=== PATIENT | male | born 1965 | race Hispanic/Latino ===

== ENCOUNTER 2017-08-19 21:17 | Emergency (ER) | payer MEDICARE | END 2017-08-19 22:00 | disposition left against medical advice (07) | LOC: JD.ED 21:17 | DX: Z53.21 Procedure and treatment not carried out due to patient leaving prior to being seen by health care provider (principal) ==

== ENCOUNTER 2017-09-08 13:58 | Emergency (ER) | payer MEDICARE ==
--- NOTE | 2017-09-08 14:31 | EDM.PDOC ---
ED HPI GENERAL MEDICAL PROBLEM - General Chief Complaint: Upper Extremity Injury/Pain Stated Complaint: RIGHT WRIST PAIN Time Seen by Provider: 09/08/17 14:31 Source of Information: Reports: Patient History Limitations: Reports: No Limitations - History of Present Illness INITIAL COMMENTS - FREE TEXT/NARRATIVE: Patient is a 52-year-old male with a history of gout to the right wrist who presents to the ED with flareup for the past week. Patient states symptoms are not as severe with previous episodes. Patient is currently on indomethacin, colchicine, and allopurinol. He has not taken indomethacin or colchicine over the past few days. States there is some mild swelling. Increased pain with movement. No redness, no increased warmth, no pain noted to his hand, forearm, elbow. No redness streaking up his arm. Again findings are consistent with previous episodes. 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 States he drives a lot and lifts items. He was previously on disability for chronic gout in 1999. Over the past few years he's been able to return to work with decrease in symptoms. States he eats a lot of red meats. Denies any alcoholic beverages. He has no primary care provider here locally. Has no additional past medical history and currently taking no other meds. Denies any trauma and or activity that may have precipitated the pain. Right Wrist Pain Score (Numeric/FACES): 7 - Related Data Allergies Allergy/AdvReac Type Severity Reaction Status Date / Time No Known Allergies Allergy Verified 09/08/17 14:23 Home Meds: Home Meds Allopurinol [Zyloprim] 100 mg PO DAILY PRN 08/19/17 [History] Colchicine 0.6 mg PO DAILY PRN 08/19/17 [History] Indomethacin [Indocin] 25 mg PO DAILY 08/19/17 [History] Past Medical History Cardiovascular History: Reports: Hypertension Genitourinary History: Reports: Other (See Below) Other Genitourinary History: gout Social & Family History - Tobacco Use Smoking Status *Q: Never Smoker - Caffeine Use Caffeine Use: Reports: Coffee, Soda - Recreational Drug Use Recreational Drug Use: No Review of Systems - Review of Systems Review Of Systems: ROS reveals no pertinent complaints other than HPI. ED EXAM, GENERAL - Physical Exam Exam: See Below Exam Limited By: No Limitations General Appearance: Alert, WD/WN, No Apparent Distress Ears: Hearing Grossly Normal Nose: Normal Inspection Throat/Mouth: Normal Voice, No Airway Compromise Neck: Normal Inspection, Supple Respiratory/Chest: No Respiratory Distress, Lungs Clear, Normal Breath Sounds, No Accessory Muscle Use Cardiovascular: Normal Peripheral Pulses, Regular Rate, Rhythm Peripheral Pulses: 4+: Radial (L) Extremities: Other (Mild swelling noted to the dorsal aspect of the right wrist/ hand along the second and third metacarpal. Decreased range of motion noted at the wrist secondary to pain. No increased redness, no bony abnormalities, no pain noted to the fingers hand elbow upper arm or shoulder. No sensory changes noted.) Neurological: Alert, Oriented, CN II-XII Intact, Normal Cognition, No Motor/ Sensory Deficits Psychiatric: Normal Affect, Normal Mood Skin Exam: Warm, Dry, Intact, Normal Color Course - Vital Signs Last Recorded V/S: Last Vital Signs Temp 97.6 F 09/08/17 14:23 Pulse 85 09/08/17 14:23 Resp 16 09/08/17 14:23 BP 157/88 H 09/08/17 14:23 Pulse Ox 97 09/08/17 14:23 - Orders/Labs/Meds Meds: Medications Discontinued Medications Generic Name Dose Route Start Last Admin Trade Name Freq PRN Reason Stop Dose Admin Ketorolac Tromethamine 60 mg 09/08/17 14:41 09/08/17 14:46 Toradol IM 09/08/17 14:42 60 mg ONETIME ONE Administration - Re-Assessments/Exams Free Text/Narrative Re-Assessment/Exam: Patient is a 52-year-old male with a history of gout to the right wrist consistent with previous episodes that is not as severe. States she's been taking indomethacin, colchicine, and also allopurinol. States he has not taken the colchicine and indomethacin for the past 2 days. Some mild swelling noted to the right wrist. No increased warmth or increased redness noted. No recent trauma that precipitated this. Again symptoms are consistent with previous episodes. Normally receives a Toradol injection. Labs will not be obtained. Thus ordered toradol 60mg IM. 09/08/17 15:17 reassessment, patient states pain has just improved. He is moving his wrist freely. No grimacing noted. He is wishing to be discharged home. I did discuss return precautions with the patient. He has no further questions. Discharge instructions as documented. Departure - Departure Time of Disposition: 15:14 Disposition: Home, Self-Care 01 Clinical Impression: Gout attack Qualifiers: Gout site: wrist Gout etiology: unspecified cause Laterality: right Qualified Code(s): M10.9 - Gout, unspecified - Discharge Information Instructions: Low-Purine Eating Plan, Gout, [id number] Referrals: PCP,None [Primary Care Provider] - Forms: ED Department Discharge Additional Instructions: Continue taking your home medications as prescribed. Establish medical care with a primary care provider here locally for further management. Read the instructions provided for decreasing flareups. Return to the ED for any new or worsening symptoms.
[2017-09-08] MEDS ORDERED: Ketorolac 60 MG/2 ML SDV IM ONE (14:41)
== END 2017-09-08 15:20 | disposition home or self-care (01) ==
LOC: JD.ED 13:58
DX: M10.9 Gout, unspecified (principal); I10 Essential (primary) hypertension; Z79.899 Other long term (current) drug therapy
CPT/HCPCS: 96372; 99283; J1885

== ENCOUNTER 2017-09-12 22:06 | Emergency (ER) | payer MEDICARE ==
[2017-09-12] MEDS ORDERED: HYDROmorphone 0.5 MG/0.5 ML SYRINGE IM ONE (23:01)
--- NOTE | 2017-09-12 23:05 | EDM.PDOC ---
ED HPI GENERAL MEDICAL PROBLEM - General Chief Complaint: Upper Extremity Injury/Pain Stated Complaint: SWOLLEN RIGHT HAND Time Seen by Provider: 09/12/17 22:42 Source of Information: Reports: Patient History Limitations: Reports: No Limitations - History of Present Illness INITIAL COMMENTS - FREE TEXT/NARRATIVE: 52-year-old male presents for evaluation and treatment of swelling pain to the right hand. Patient reports this has been going on for the last 2 weeks. Feels that his a flare of his gout. He was seen in our ER in 09-08-17. Given a shot of Toradol and instructed to take the colchicine and indomethacin he has at home. He states he has been taking indomethacin but not the colchicine. He now has developed swelling to the right hand. He has pain to the right hand, wrist and elbow. No fevers or chills. States that this is similar to his previous gout attacks. Patient requesting a refill of his lisinopril and allopurinol. He has not yet established with a primary care provider here [place]. States he has not been taking his allopurinol recently. 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) Right Hand Pain Score (Numeric/FACES): 8 - Related Data Allergies Allergy/AdvReac Type Severity Reaction Status Date / Time No Known Allergies Allergy Verified 09/08/17 14:23 Home Meds: Home Meds Allopurinol [Zyloprim] 100 mg PO DAILY PRN 08/19/17 [History] Colchicine 0.6 mg PO DAILY PRN 08/19/17 [History] Indomethacin [Indocin] 25 mg PO DAILY 08/19/17 [History] Acetaminophen/oxyCODONE [Percocet 325-5 MG] 1 tab PO Q4HR PRN #12 tab 09/12/17 [ Rx] Allopurinol [Zyloprim] 100 mg PO DAILY #30 tab 09/12/17 [Rx] Lisinopril 20 mg PO DAILY 09/12/17 [History] Lisinopril 20 mg PO DAILY #30 tablet 09/12/17 [Rx] Past Medical History Cardiovascular History: Reports: Hypertension Genitourinary History: Reports: Other (See Below) Other Genitourinary History: gout Musculoskeletal History: Reports: Gout Social & Family History - Tobacco Use Smoking Status *Q: Never Smoker - Caffeine Use Caffeine Use: Reports: Coffee, Soda - Recreational Drug Use Recreational Drug Use: No Review of Systems - Review of Systems Review Of Systems: See Below Constitutional: Denies: Chills, Fever Musculoskeletal: Reports: Joint Pain (right hand, right wrist and right elbow), Joint Swelling (right hand and right wrist) Neurological: Denies: Numbness, Tingling ED EXAM, GENERAL - Physical Exam Exam: See Below Exam Limited By: No Limitations General Appearance: Alert, WD/WN, Mild Distress, Obese Respiratory/Chest: No Respiratory Distress, Lungs Clear, Normal Breath Sounds Cardiovascular: Normal Peripheral Pulses, Regular Rate, Rhythm, No Murmur Peripheral Pulses: 2+: Radial (L), Radial (R) Extremities: Joint Swelling (right hand), Arm Pain (right hand, wrist and elbow ), Limited Range of Motion (due to pain ). No: Increased Warmth, Redness Neurological: Alert, Oriented, Normal Cognition Psychiatric: Normal Affect, Normal Mood Skin Exam: Warm, Dry, Normal Color Course - Vital Signs Last Recorded V/S: Last Vital Signs Temp 97.7 F 09/12/17 22:17 Pulse 81 09/12/17 22:17 Resp 20 09/12/17 22:17 BP 165/114 H 09/12/17 22:17 Pulse Ox 97 09/12/17 22:17 - Orders/Labs/Meds Meds: Medications Discontinued Medications Generic Name Dose Route Start Last Admin Trade Name Juan Mq PRN Reason Stop Dose Admin Hydromorphone HCl 1 mg 09/12/17 23:01 09/12/17 23:08 Dilaudid IM 09/12/17 23:02 1 mg ONETIME ONE Administration - Re-Assessments/Exams Free Text/Narrative Re-Assessment/Exam: 09/12/17 23:02 Informed patient that he needs to establish primary care. I will give him a shot of pain medication here in the ER tonight prescribe him a few pain pills. Discharge instructions as documented. Departure - Departure Time of Disposition: 23:03 Disposition: Home, Self-Care 01 Condition: Fair Clinical Impression: Gout attack Qualifiers: Gout site: wrist Gout etiology: unspecified cause Laterality: right Qualified Code(s): M10.9 - Gout, unspecified - Discharge Information Prescriptions: Acetaminophen/oxyCODONE [Percocet 325-5 MG] 1 tab PO Q4HR PRN #12 tab PRN Reason: Pain Allopurinol [Zyloprim] 100 mg PO DAILY #30 tab Lisinopril 20 mg PO DAILY #30 tablet Instructions: Gout, [id number] Referrals: PCP,None [Primary Care Provider] - Emily Kaplan PA-C [Physician Tannery Gummer] - Forms: ED Department Discharge Additional Instructions: You were given medication ER that can affect your ability to drive and operate machinery. Do not drive or operate machinery within 12 hours of taking prescription narcotic pain medication. Continue taking your lisinopril 1 tab daily. Take your allopurinol 1 tab daily, start this after this acute gout attack has subsided. Start your colchicine tomorrow as prescribed. Continue taking the indomethacin as prescribed. Percocet 1-2 tabs every 4-[address] not drive or operate machinery within 12 hours of taking Percocet. Percocet as habit-forming, take as few of these as needed to control your pain. You need to establish with a primary care provider. Recommend Dr. Corley or Tete Hopson [facility]. Call [phone] schedule one of these providers. Please return to the ER if your symptoms change or worsen.
== END 2017-09-12 23:15 | disposition home or self-care (01) ==
LOC: JD.ED 22:06
DX: M10.9 Gout, unspecified (principal); I10 Essential (primary) hypertension; Z79.899 Other long term (current) drug therapy
CPT/HCPCS: 96372; 99283; J1170

== ENCOUNTER 2020-02-06 22:30 | Emergency (ER) | payer MEDICARE ==
--- NOTE | 2020-02-06 23:30 | EDM.PDOC ---
ED HPI GENERAL MEDICAL PROBLEM - General Chief Complaint: Respiratory Problem Stated Complaint: SOB Time Seen by Provider: 02/06/20 22:41 Source of Information: Reports: Patient History Limitations: Reports: No Limitations - History of Present Illness INITIAL COMMENTS - FREE TEXT/NARRATIVE: Mr. Robetr is a pleasant 54-year-old gentleman who now presents to the ED with a report of generalized body aches for the past 4 to 5 days, and dyspnea, even at rest, today. No recent fever, cough, chest pain, palpitations, or gastrointestinal symptoms. He has had body aches in the past, but no similar prior dyspnea. He states that he took 3 tablets of Aleve every 6 hours 2 to 3 days ago, but has not taken any over the past 2 days. The patient states that he has a history of diabetes, and that he checks his blood glucose about once a month, however, he does not recall the last time it was checked. He also states that he has not taken his medications for his hypertension, gout, or diabetes for the past 5 days, but also states that he does not have a PCP, and that he does not recall who his PCP was. I suspect that the patient's medical conditions have been left untreated for quite some time. The patient is noted to be wearing one of our surgical masks, given to him upon entering the ED, and he was wearing that down below his nose. This suggests to me that the patient does not have a mask of his own, and that even if he did, he is not wearing it properly, therefore he is at increased risk for acquisition of the SARS-CoV-2 virus. Here in the ED, the patient's initial BP is found to be modestly elevated at 149/98, otherwise, he is hemodynamically stable, afebrile, saturating 96% on room air. Prior to 4 to 5 days ago, the patient denies having a recent fever, chills, sore throat, ear pain, nasal or sinus congestion, cough, dyspnea, chest pain, palpitations, nausea, vomiting, constipation, diarrhea, abdominal pain, urinary symptoms, recent weight gain or weight loss, recent bloody bowel movements or black bowel movements, recent joint aches, headaches, or rashes. Medical records indicate that the patient last saw Dr. Magalys Corley on 12/28/2019. Generalized Pain Score (Numeric/FACES): 3 - Related Data Allergies Allergy/AdvReac Type Severity Reaction Status Date / Time No Known Allergies Allergy Verified 02/06/20 22:52 Home Meds: Home Meds Colchicine 0.6 mg PO DAILY PRN 08/19/17 [History] Indomethacin [Indocin] 50 mg PO DAILY 08/19/17 [History] Acetaminophen/oxyCODONE [Percocet 325-5 MG] 1 tab PO Q4HR PRN #12 tab 09/12/17 [Rx] Lisinopril 20 mg PO DAILY #30 tablet 09/12/17 [Rx] allopurinoL [Zyloprim] 100 mg PO DAILY #30 tab 09/12/17 [Rx] metFORMIN [Glucophage] 500 mg PO BIDMEALS 02/06/20 [History] metFORMIN [Glucophage] 1 tab PO BIDMEALS #28 tab 02/07/20 [Rx] Past Medical History Cardiovascular History: Reports: Hypertension (untreated) Musculoskeletal History: Reports: Gout (aspiration-confirmed, untreated) Endocrine/Metabolic History: Reports: Diabetes, Type II (untreated), Obesity/BMI 30+ - Infectious Disease History Infectious Disease History: Reports: Chicken Pox Social & Family History - Family History Family Medical History: Noncontributory - Tobacco Use Tobacco Use Status *Q: Former Tobacco User Years of Tobacco use: 17 Packs/Tins Daily: 0.5 Month/Year Tobacco Last Used: Quit around 1999 - Caffeine Use Caffeine Use: Reports: None - Alcohol Use Alcohol Use History: No - Recreational Drug Use Recreational Drug Use: No - Living Situation & Occupation Living situation: Reports: , with Spouse, with Family (2 kids) 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 ED EXAM, GENERAL - Physical Exam Exam: See Below Exam Limited By: No Limitations General Appearance: Alert, WD/WN, No Apparent Distress Eye Exam: Bilateral Eye: EOMI, Normal Inspection Ears: Normal External Exam, Hearing Grossly Normal Nose: Normal Inspection Throat/Mouth: Normal Inspection, Normal Lips, Normal Voice, No Airway Compromise Head: Atraumatic, Normocephalic Neck: Normal Inspection, Full Range of Motion Respiratory/Chest: No Respiratory Distress, Lungs Clear, Normal Breath Sounds, No Accessory Muscle Use. No: Decreased Breath Sounds, Crackles, Rhonchi, Wheezing, Stridor, Prolonged Expiration Cardiovascular: Normal Peripheral Pulses, Regular Rate, Rhythm, No Edema, No Gallop, No JVD, No Murmur, No Rub Peripheral Pulses: 3+: Radial (L), Radial (R) GI/Abdominal: Normal Bowel Sounds, Soft, Non-Tender, No Organomegaly, No Distention, No Abnormal Bruit, No Mass Back Exam: Normal Inspection, Full Range of Motion, NT Extremities: Normal Inspection, Normal Range of Motion, No Pedal Edema, Normal Capillary Refill Neurological: Alert, Oriented, Normal Cognition, No Motor/Sensory Deficits Psychiatric: Normal Affect Skin Exam: Warm, Dry, Intact, Normal Color, No Rash Course - Vital Signs Last Recorded V/S: Last Vital Signs Temp 35.5 C L 02/06/20 22:48 Pulse 78 02/06/20 22:48 Resp 20 02/06/20 22:48 BP 149/98 H 02/06/20 22:48 Pulse Ox 96 02/06/20 22:48 - Orders/Labs/Meds Orders: Active Orders 24 hr Category Date Time Status Accu Check [Blood Glucose Check, Bedside] [RC] ONETIME Care 02/06/20 23:31 Active Chest 2V [CR] Stat Exams 02/06/20 23:23 Taken CORONAVIRUS COVID-19 PCR PHL Stat Lab 02/06/20 23:32 Received Isolation [COMM] Routine Oth 02/06/20 23:24 Ordered - Re-Assessments/Exams Free Text/Narrative Re-Assessment/Exam: 02/06/20 23:24 As above, the patient developed generalized body aches around 4 to 5 days ago, then dyspnea at rest today, although he has not had a fever, cough, chest pain, palpitations, or gastrointestinal symptoms. He took Aleve initially, but has not taken any in the past couple of days. He is neither febrile nor hypoxemic. His physical exam is grossly unremarkable. I have ordered an influenza swab and a chest x-ray, to be used as a baseline in case his condition worsens, however, unless his chest x-ray is abnormal, I do not see the need for blood work at this time. I have also ordered a send-out swab for the SARS-CoV-2 virus and an Accu-check. 02/06/20 23:58 The patient's Accu-Chek is 324. 02/07/20 00:09 The patient's influenza swab has returned negative. 02/07/20 00:13 2-view chest radiograph is read by [facility] as "Mild patchy airspace opacities in both lungs, most suggestive of multifocal pneumonia." 02/07/20 00:18 Test results discussed with the patient. His findings are most consistent with COVID-19. I offered to perform additional blood work, including blood cultures, but the patient declined. Having bilateral infiltrates without a fever, cough, or hypoxemia is not consistent with bacterial pneumonia, so I don't disagree with the patient's decision. I will discharge him home with a prescription for Metformin for 2 weeks, as well as a referral to Dr. Corley to reestablish her as his PCP. The patient will need to quarantine until he tests negative for the SARS-CoV-2 virus twice, and I will provide him a note for work. Departure - Departure Time of Disposition: 00:19 Disposition: Home, Self-Care 01 Condition: Good Clinical Impression: Dyspnea, Generalized body aches, Suspected COVID-19 virus infection, Hyperglycemia due to type 2 diabetes mellitus - Discharge Information *PRESCRIPTION DRUG MONITORING PROGRAM REVIEWED*: Not Applicable *COPY OF PRESCRIPTION DRUG MONITORING REPORT IN PATIENT [place]ULAY: Not Applicable Prescriptions: metFORMIN [Glucophage] 1 tab PO BIDMEALS #28 tab Referrals: Magalys Corley MD [Physician] - Forms: ED Department Discharge, ED Return to Work/School Form Additional Instructions: You were seen in the emergency room for 4 to 5 days of generalized body aches, along with shortness of breath today. Work-up in the ER included an Accu-Chek, a chest x-ray, and swabs for both influenza and the SARS-CoV-2 virus. Your blood sugar was found to be elevated at 324. Your influenza swab returned negative. Your chest x-ray showed mild infiltrates in both of your lungs, consistent with COVID-19, however, your swab for the SARS-CoV-2 virus is a send-out swab. You will be notified of the results within the next few days. Based on your history, physical exam, and ER tests, you are most likely suffering from COVID-19. As discussed, unless your oxygen saturation drops down to 88% or below, there are no current treatments recommended for COVID-19. As discussed, it is imperative that you quarantine until you tested negative for COVID-19 on 2 separate occasions. A note for work has been provided to you. A prescription for Metformin has been sent to the [facility] pharmacy, located across the [address] and just south of [facility]. Take 1 tablet of Metformin twice a day, with food, as prescribed. Follow-up with your PCP, Dr. Magalys Corley, at the next available appointment. If any other problems, please do not hesitate to return to the ER. Sepsis Event Note (ED) - Evaluation Sepsis Screening Result: No Definite Risk - Focused Exam Vital Signs: Vital Signs Temp Pulse Resp BP Pulse Ox 02/06/20 22:48 35.5 C L 78 20 149/98 H 96 - My Orders Last 24 Hours: My Active Orders 02/06/20 23:23 Chest 2V [CR] Stat 02/06/20 23:24 Isolation [COMM] Routine 02/06/20 23:31 Accu Check [Blood Glucose Check, Bedside] [RC] ONETIME 02/06/20 23:32 CORONAVIRUS COVID-19 PCR PHL Stat - Assessment/Plan Last 24 Hours: My Active Orders 02/06/20 23:23 Chest 2V [CR] Stat 02/06/20 23:24 Isolation [COMM] Routine 02/06/20 23:31 Accu Check [Blood Glucose Check, Bedside] [RC] ONETIME 02/06/20 23:32 CORONAVIRUS COVID-19 PCR PHL Stat
--- NOTE | 2020-02-07 10:19 | CR ---
PROCEDURE INFORMATION: Exam: XR Chest, 2 Views Exam date and time: 02/06/2020 11:49 PM Age: 54 years old Clinical indication: Other: Chills, aches; Patient HX: Baseline, chills/aches onset yesterday morning TECHNIQUE: Imaging protocol: XR of the chest Views: 2 views. COMPARISON: No relevant prior studies available. FINDINGS: Lungs: Mild patchy airspace opacities in both lungs. Pleural space: Unremarkable. No pleural effusion. No pneumothorax. Heart/Mediastinum: Unremarkable. No cardiomegaly. Bones/joints: Multilevel chronic degenerative changes of the thoracic spine. IMPRESSION: Mild patchy airspace opacities in both lungs, most suggestive of multifocal pneumonia. Thank you for allowing us to participate in the care of your patient. Dictated and Authenticated by: Fredi Koch MD 02/07/2020 1:11 AM Central Time ([place] & [place]) [place]
== END 2020-02-07 00:45 | disposition home or self-care (01) ==
LOC: JD.ED 22:30
DX: U07.1 COVID-19 (principal); E11.65 Type 2 diabetes mellitus with hyperglycemia; I10 Essential (primary) hypertension; M10.9 Gout, unspecified; E66.9 Obesity, unspecified; Z68.35 Body mass index [BMI] 35.0-35.9, adult; Z20.828 Contact with and (suspected) exposure to other viral communicable diseases; Z79.84 Long term (current) use of oral hypoglycemic drugs; Z79.899 Other long term (current) drug therapy; Z87.891 Personal history of nicotine dependence
CPT/HCPCS: 71046; 99285; U0002

== ENCOUNTER 2020-02-08 04:34 | Emergency (ER) | payer MEDICARE ==
--- NOTE | 2020-02-08 05:29 | EDM.PDOC ---
ED HPI GENERAL MEDICAL PROBLEM - General Chief Complaint: Respiratory Problem Stated Complaint: SOB Time Seen by Provider: 02/08/20 05:00 Source of Information: Reports: Patient, Old Records (ED visit 02/06/2020) History Limitations: Reports: No Limitations - History of Present Illness INITIAL COMMENTS - FREE TEXT/NARRATIVE: Mr. Robert is a pleasant 54-year-old gentleman who was seen by me 2 days ago, on 02/06/2020 with a complaint at that time of generalized body aches for the previous 4 to 5 days, and dyspnea, even at rest that day. He had not had a recent fever, cough, chest discomfort, palpitations, or gastrointestinal symptoms. He had had body aches in the past, but not prior similar dyspnea. It was discovered that the patient has a history of hypertension, diabetes, and gout, but that he had not taken any of his medications for the previous 5 days, and perhaps longer. The patient was found to be hemodynamically stable, afebrile, saturating 96% on room air. His physical exam, including his lungs, was grossly unremarkable. Work-up included an Accu-Chek, which returned elevated at 324, an influenza swab, which returned negative, and a 2 view chest x-ray, which was read by [facility] as "Mild patchy airspace opacities in both lungs, most suggestive of multifocal pneumonia." The patient's presentation was felt most consistent with COVID-19. Additional work-up, including blood work and blood cultures was offered, but declined. He was discharged home with a prescription for Metformin and a referral to the clinic, in order to establish a PCP. The patient now returns the ED stating that he continues to have dyspnea, as well as a cough occasionally productive of clear sputum and rarely productive of specks of hemoptysis. He has still not had a fever or chills, and he denies having body aches. No recent nausea, vomiting, constipation, or diarrhea. He acknowledges that his symptoms are essentially unchanged from 2 days ago, but he is looking for some form of relief. He states that he has been taking Emergen- C, lisinopril, and the Metformin that I prescribed for him. He has not made an appointment to establish a PCP. Here in the ED, the patient's initial BP is found to be mildly elevated at 146/96, otherwise, he is hemodynamically stable, afebrile, saturating 95% on room air. Prior to the onset of the patient's symptoms about 1 week ago, the patient denies having a recent fever, chills, sore throat, ear pain, nasal or sinus congestion, cough, dyspnea, chest pain, palpitations, nausea, vomiting, constipation, diarrhea, abdominal pain, urinary symptoms, recent weight gain or weight loss, recent bloody bowel movements or black bowel movements, recent joint aches, headaches, or rashes. Medical records indicate that the patient last saw Dr. Magalys Corley on 12/28/2019. - Related Data Allergies Allergy/AdvReac Type Severity Reaction Status Date / Time No Known Allergies Allergy Verified 02/08/20 04:45 Home Meds: Home Meds Colchicine 0.6 mg PO DAILY PRN 08/19/17 [History] Indomethacin [Indocin] 50 mg PO DAILY 08/19/17 [History] Acetaminophen/oxyCODONE [Percocet 325-5 MG] 1 tab PO Q4HR PRN #12 tab 09/12/17 [Rx] Lisinopril 20 mg PO DAILY #30 tablet 09/12/17 [Rx] allopurinoL [Zyloprim] 100 mg PO DAILY #30 tab 09/12/17 [Rx] metFORMIN [Glucophage] 500 mg PO BIDMEALS 02/06/20 [History] metFORMIN [Glucophage] 1 tab PO BIDMEALS #28 tab 02/07/20 [Rx] Past Medical History Cardiovascular History: Reports: Hypertension Musculoskeletal History: Reports: Gout (aspiration-confirmed, untreated) Endocrine/Metabolic History: Reports: Diabetes, Type II, Obesity/BMI 30+ - Infectious Disease History Infectious Disease History: Reports: Chicken Pox Social & Family History - Family History Family Medical History: Noncontributory - Tobacco Use Tobacco Use Status *Q: Former Tobacco User Years of Tobacco use: 17 Packs/Tins Daily: 0.5 Month/Year Tobacco Last Used: Quit around 1999 - Caffeine Use Caffeine Use: Reports: None - Alcohol Use Alcohol Use History: No - Recreational Drug Use Recreational Drug Use: No - Living Situation & Occupation Living situation: Reports: , with Spouse, with Family (2 kids) 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 ED EXAM, GENERAL - Physical Exam Exam: See Below Exam Limited By: No Limitations General Appearance: Alert, WD/WN, No Apparent Distress Eye Exam: Bilateral Eye: EOMI, Normal Inspection Ears: Normal External Exam, Hearing Grossly Normal Nose: Normal Inspection Throat/Mouth: Normal Inspection, Normal Lips, Normal Voice, No Airway Compromise Head: Atraumatic, Normocephalic Neck: Normal Inspection, Full Range of Motion Respiratory/Chest: No Respiratory Distress, Lungs Clear, Normal Breath Sounds, No Accessory Muscle Use. No: Decreased Breath Sounds, Crackles, Rhonchi, Wheezing, Stridor, Prolonged Expiration Cardiovascular: Normal Peripheral Pulses, Regular Rate, Rhythm, No Edema, No Gallop, No JVD, No Murmur, No Rub Peripheral Pulses: 3+: Radial (L), Radial (R) GI/Abdominal: Normal Bowel Sounds, Soft, Non-Tender, No Organomegaly, No Distention, No Abnormal Bruit, No Mass Back Exam: Normal Inspection, Full Range of Motion, NT Extremities: Normal Inspection, Normal Range of Motion, No Pedal Edema, Normal Capillary Refill Neurological: Alert, Oriented, Normal Cognition, No Motor/Sensory Deficits Psychiatric: Normal Affect Skin Exam: Warm, Dry, Intact, Normal Color, No Rash Course - Vital Signs Last Recorded V/S: Last Vital Signs Temp 36.0 C L 02/08/20 04:45 Pulse 90 02/08/20 04:45 Resp 18 02/08/20 04:45 BP 146/96 H 02/08/20 04:45 Pulse Ox 95 02/08/20 04:45 - Orders/Labs/Meds Orders: Active Orders 24 hr Category Date Time Status Chest 2V [CR] Stat Exams 02/08/20 05:18 Taken CULTURE BLOOD [BC] Stat Lab 02/08/20 05:53 Received CULTURE BLOOD [BC] Stat Lab 02/08/20 06:00 Received Blood Culture x2 Reflex Set [OM.PC] Stat Oth 02/08/20 05:20 Ordered Labs: Laboratory Tests 02/08/20 02/08/20 02/08/20 Range/Units 05:53 05:53 05:53 WBC 7.58 (4.23-9.07) K/mm3 RBC 5.58 (4.63-6.08) M/mm3 Hgb 15.8 (13.7-17.5) gm/dl Hct 47.7 (40.1-51.0) % MCV 85.5 (79.0-92.2) fl MCH 28.3 (25.7-32.2) pg MCHC 33.1 (32.2-35.5) g/dl RDW Std Deviation 39.7 (35.1-43.9) fL Plt Count 360 H (163-337) K/mm3 MPV 9.0 L (9.4-12.3) fl Neutrophils % (Manual) 70 H (40-60) % Band Neutrophils % 0 (0-10) % Lymphocytes % (Manual) 22 (20-40) % Atypical Lymphs % 0 % Monocytes % (Manual) 8 (2-10) % Eosinophils % (Manual) 0 L (0.8-7.0) % Basophils % (Manual) 0 L (0.2-1.2) Platelet Estimate Adequate RBC Morph Comment Normal PT (9.7-12.0) SECONDS INR APTT (21.7-31.4) SECONDS D-Dimer, Quantitative (0.19-0.50) mg/L Puncture Site ABG pH (7.35-7.45) ABG pCO2 (35.0-45.0) mmHg ABG pO2 (80.0-100.0) mmHg ABG HCO3 (22.0-26.0) meq/L ABG O2 Saturation (96.0-97.0) % ABG Base Excess (-2-2.0) A-a Gradient mmHg O2 Delivery Device Oxygen Flow Rate FiO2 (21.00-100.00) % Sodium 134 L (136-145) mEq/L Potassium 4.2 (3.5-5.1) mEq/L Chloride 97 L (98-107) mEq/L Carbon Dioxide 24 (21-32) mEq/L Anion Gap 17.2 H (5-15) BUN 18 (7-18) mg/dL Creatinine 1.4 H (0.7-1.3) mg/dL Est Cr Clr Drug Dosing 65.44 mL/min Estimated GFR (MDRD) 53 (>60) mL/min BUN/Creatinine Ratio 12.9 L (14-18) Glucose 206 H (74-106) mg/dL Lactic Acid 1.2 (0.4-2.0) mmol/L Calcium 8.8 (8.5-10.1) mg/dL Magnesium 1.8 (1.8-2.4) mg/dl Ferritin (26-388) ng/ml Total Bilirubin 0.6 (0.2-1.0) mg/dL AST 45 H (15-37) U/L ALT 45 (16-63) U/L Alkaline Phosphatase 90 (46-116) U/L Lactate Dehydrogenase 321 H (85-227) U/L Creatine Kinase 231 (39-308) U/L Troponin I < 0.017 (0.00-0.056) ng/mL C-Reactive Protein 7.1 H* (<1.0) mg/dL NT-Pro-B Natriuret Pep (0-125) pg/mL Total Protein 8.4 H (6.4-8.2) g/dl Albumin 3.5 (3.4-5.0) g/dl Globulin 4.9 gm/dL Albumin/Globulin Ratio 0.7 L (1-2) 02/08/20 02/08/20 02/08/20 Range/Units 05:53 05:53 05:53 WBC (4.23-9.07) K/mm3 RBC (4.63-6.08) M/mm3 Hgb (13.7-17.5) gm/dl Hct (40.1-51.0) % MCV (79.0-92.2) fl MCH (25.7-32.2) pg MCHC (32.2-35.5) g/dl RDW Std Deviation (35.1-43.9) fL Plt Count (163-337) K/mm3 MPV (9.4-12.3) fl Neutrophils % (Manual) (40-60) % Band Neutrophils % (0-10) % Lymphocytes % (Manual) (20-40) % Atypical Lymphs % % Monocytes % (Manual) (2-10) % Eosinophils % (Manual) (0.8-7.0) % Basophils % (Manual) (0.2-1.2) Platelet Estimate RBC Morph Comment PT 10.7 (9.7-12.0) SECONDS INR 1.00 APTT 32.8 H (21.7-31.4) SECONDS D-Dimer, Quantitative 0.38 (0.19-0.50) mg/L Puncture Site ABG pH (7.35-7.45) ABG pCO2 (35.0-45.0) mmHg ABG pO2 (80.0-100.0) mmHg ABG HCO3 (22.0-26.0) meq/L ABG O2 Saturation (96.0-97.0) % ABG Base Excess (-2-2.0) A-a Gradient mmHg O2 Delivery Device Oxygen Flow Rate FiO2 (21.00-100.00) % Sodium (136-145) mEq/L Potassium (3.5-5.1) mEq/L Chloride (98-107) mEq/L Carbon Dioxide (21-32) mEq/L Anion Gap (5-15) BUN (7-18) mg/dL Creatinine (0.7-1.3) mg/dL Est Cr Clr Drug Dosing mL/min Estimated GFR (MDRD) (>60) mL/min BUN/Creatinine Ratio (14-18) Glucose (74-106) mg/dL Lactic Acid (0.4-2.0) mmol/L Calcium (8.5-10.1) mg/dL Magnesium (1.8-2.4) mg/dl Ferritin 1509 H (26-388) ng/ml Total Bilirubin (0.2-1.0) mg/dL AST (15-37) U/L ALT (16-63) U/L Alkaline Phosphatase (46-116) U/L Lactate Dehydrogenase (85-227) U/L Creatine Kinase (39-308) U/L Troponin I (0.00-0.056) ng/mL C-Reactive Protein (<1.0) mg/dL NT-Pro-B Natriuret Pep 14 (0-125) pg/mL Total Protein (6.4-8.2) g/dl Albumin (3.4-5.0) g/dl Globulin gm/dL Albumin/Globulin Ratio (1-2) 02/08/20 Range/Units 06:23 WBC (4.23-9.07) K/mm3 RBC (4.63-6.08) M/mm3 Hgb (13.7-17.5) gm/dl Hct (40.1-51.0) % MCV (79.0-92.2) fl MCH (25.7-32.2) pg MCHC (32.2-35.5) g/dl RDW Std Deviation (35.1-43.9) fL Plt Count (163-337) K/mm3 MPV (9.4-12.3) fl Neutrophils % (Manual) (40-60) % Band Neutrophils % (0-10) % Lymphocytes % (Manual) (20-40) % Atypical Lymphs % % Monocytes % (Manual) (2-10) % Eosinophils % (Manual) (0.8-7.0) % Basophils % (Manual) (0.2-1.2) Platelet Estimate RBC Morph Comment PT (9.7-12.0) SECONDS INR APTT (21.7-31.4) SECONDS D-Dimer, Quantitative (0.19-0.50) mg/L Puncture Site Rt radial ABG pH 7.42 (7.35-7.45) ABG pCO2 33.9 L (35.0-45.0) mmHg ABG pO2 70.0 L (80.0-100.0) mmHg ABG HCO3 21.4 L (22.0-26.0) meq/L ABG O2 Saturation 93.4 L (96.0-97.0) % ABG Base Excess -1.9 (-2-2.0) A-a Gradient 37 mmHg O2 Delivery Device Room air Oxygen Flow Rate 0.0 FiO2 21.00 (21.00-100.00) % Sodium (136-145) mEq/L Potassium (3.5-5.1) mEq/L Chloride (98-107) mEq/L Carbon Dioxide (21-32) mEq/L Anion Gap (5-15) BUN (7-18) mg/dL Creatinine (0.7-1.3) mg/dL Est Cr Clr Drug Dosing mL/min Estimated GFR (MDRD) (>60) mL/min BUN/Creatinine Ratio (14-18) Glucose (74-106) mg/dL Lactic Acid (0.4-2.0) mmol/L Calcium (8.5-10.1) mg/dL Magnesium (1.8-2.4) mg/dl Ferritin (26-388) ng/ml Total Bilirubin (0.2-1.0) mg/dL AST (15-37) U/L ALT (16-63) U/L Alkaline Phosphatase (46-116) U/L Lactate Dehydrogenase (85-227) U/L Creatine Kinase (39-308) U/L Troponin I (0.00-0.056) ng/mL C-Reactive Protein (<1.0) mg/dL NT-Pro-B Natriuret Pep (0-125) pg/mL Total Protein (6.4-8.2) g/dl Albumin (3.4-5.0) g/dl Globulin gm/dL Albumin/Globulin Ratio (1-2) - Re-Assessments/Exams Free Text/Narrative Re-Assessment/Exam: 02/08/20 05:23 As above, the patient was seen by me in this ED 2 days ago with a complaint at that time of generalized body aches for 4 to 5 days, and dyspnea, even at rest. Is afebrile, with an oxygen saturation of 96% on room air, and his physical exam, including that of his lungs, was grossly benign. His Accu-Chek was found to be elevated at 324, his influenza swab returned negative, and his chest x-ray found bilateral opacities, consistent with multifocal pneumonia. His findings were most consistent with COVID-19. Additional work-up was offered, but declined. He now returns to the ED with, essentially, just more of the same, with continued dyspnea with even minimal exertion, and a cough occasionally productive of clear sputum and rarely productive of specks of hemoptysis. Still no fever. He states that he would like me to prescribe him antibiotics. I explained that antibiotics are not indicated for viral or COVID-19 pneumonia. He stated that he would like the work-up that was offered the other day. I have therefore ordered blood work, an ABG, 2 sets of blood cultures, and a repeat chest x-ray. While both of us would like to know today if the patient is positive for COVID-19, I cannot offer an immediate test, because the patient does not meet criterion for admission. 02/08/20 08:03 The patient's CBC is remarkable for thrombocytosis of 360,000, with the remainder of his CBC being unremarkable. His CMP is remarkable for a sodium slightly depressed at 134, and anion gap mildly elevated at 17.2, but with a bicarbonate normal at 24, a Cr mildly elevated at 1.4, but with a BUN normal at 18, blood glucose mildly elevated at 2 06, and an AST slightly elevated at 45 with an ALT normal at 45, and the remainder of his CMP being unremarkable. His magnesium level is within normal limits at 1.8. His lactic acid level is within normal limits at 1.2. His LDH is elevated at 321. His ferritin is elevated at 1509. His CRP is elevated at 7.1. His CPK is within normal limits at 231. His troponin is undetectably low. His BNP is within normal limits at 14. His D-dimer is within normal limits at 0.38. His coags are remarkable for PTT mildly elevated at 32.8, with the remainder of his coags being within normal limits. His ABG represents a fully compensated respiratory alkalosis. 2-view chest radiograph is read by [facility] as "Stable bilateral pulmonary infiltrates, pneumonitis not excluded. Clinical correlation is recommended." 02/08/20 08:12 Test results discussed with the patient. As above, today's work-up is entirely consistent with the patient suffering from COVID-19. I explained that, unless his oxygen saturation drops low enough that he would require supplemental oxygen, there are no medicines that we can give to treat COVID-19, and he will therefore have to simply tolerate the symptoms. I reminded him that he will need to quarantine until he tests negative, twice. I recommended that he get tested once he is feeling better. The patient expressed understanding. Departure - Departure Time of Disposition: 08:14 Disposition: Home, Self-Care 01 Condition: Good Clinical Impression: Suspected COVID-19 virus infection, Dyspnea, Cough, Hyperglycemia due to type 2 diabetes mellitus - Discharge Information *PRESCRIPTION DRUG MONITORING PROGRAM REVIEWED*: Not Applicable *COPY OF PRESCRIPTION DRUG MONITORING REPORT IN PATIENT ZULAY: Not Applicable Referrals: Magalys Corley MD [Physician] - Forms: ED Department Discharge Additional Instructions: You were seen in the emergency room for continued shortness of breath and cough, occasional coughing up blood. Work-up in the ER included blood work, 2 sets of blood cultures, arterial blood gas, and a chest x-ray. While not definitive, several of your tests returned consistent with your having COVID-19. As discussed, unless your oxygen saturation drops down to 80% or below, there are no current treatments recommended for COVID-19. As discussed, it is imperative that you quarantine until you are feeling better, at which time you should get tested again, twice. Do not return to society until you test negative twice. Follow-up with your PCP, Dr. Magalys Corley, at the next available appointment. If any other problems, please do not hesitate to return to the ER. Sepsis Event Note (ED) - Evaluation Sepsis Screening Result: No Definite Risk - Focused Exam Vital Signs: Vital Signs Temp Pulse Resp BP Pulse Ox 02/08/20 04:45 36.0 C L 90 18 146/96 H 95 - My Orders Last 24 Hours: My Active Orders 02/08/20 05:18 Chest 2V [CR] Stat 02/08/20 05:20 Blood Culture x2 Reflex Set [OM.PC] Stat 02/08/20 05:53 CULTURE BLOOD [BC] Stat 02/08/20 06:00 CULTURE BLOOD [BC] Stat - Assessment/Plan Last 24 Hours: My Active Orders 02/08/20 05:18 Chest 2V [CR] Stat 02/08/20 05:20 Blood Culture x2 Reflex Set [OM.PC] Stat 02/08/20 05:53 CULTURE BLOOD [BC] Stat 02/08/20 06:00 CULTURE BLOOD [BC] Stat
--- NOTE | 2020-02-08 10:43 | CR ---
PROCEDURE INFORMATION: Exam: XR Chest, 2 Views Exam date and time: 02/08/2020 6:26 AM Age: 54 years old Clinical indication: Cough with hemorrhage TECHNIQUE: Imaging protocol: XR of the chest Views: Frontal and lateral upright views. COMPARISON: DX Chest 2V 02/06/2020 11:49 PM FINDINGS: Lungs: Stable heterogeneous air space opacities in the bilateral lungs. The pulmonary vasculature is normal. Pleural space: No pleural effusion. No pneumothorax. Heart/Mediastinum: The heart is normal in size and contour. Mediastinum: Stable. Bones/joints: Right lateral and anterior vertebral body marginal osteophytes are noted at multiple thoracic spinal levels. IMPRESSION: Stable bilateral pulmonary infiltrates, pneumonitis not excluded. Clinical correlation is recommended. Thank you for allowing us to participate in the care of your patient. Dictated and Authenticated by: Calin Dye MD 02/08/2020 7:57 AM Central Time ([place] & [place]) [place]
== END 2020-02-08 08:58 | disposition home or self-care (01) ==
LOC: JD.ED 04:34
DX: U07.1 COVID-19 (principal); E11.65 Type 2 diabetes mellitus with hyperglycemia; I10 Essential (primary) hypertension; M10.9 Gout, unspecified; E66.9 Obesity, unspecified; R79.89 Other specified abnormal findings of blood chemistry; Z87.891 Personal history of nicotine dependence; Z79.84 Long term (current) use of oral hypoglycemic drugs; Z79.899 Other long term (current) drug therapy; Z68.29 Body mass index [BMI] 29.0-29.9, adult
CPT/HCPCS: 36415; 36600; 71046; 71046-26; 80053; 82550; 82728; 82803; 83605; 83615; 83735; 83880; 84484; 85007; 85027; 85379; 85610; 85730; 86140; 87040; 99285-25

== ENCOUNTER 2020-12-02 13:24 | Emergency (ER) | payer MEDICARE, OTHER ==
[2020-12-02] MEDS ORDERED: Colchicine 0.6 MG Tab PO ONE (14:13)
[2020-12-02] MEDS ORDERED: HYDROmorphone 1 MG/ML Syringe IM ONE (14:31)
--- NOTE | 2020-12-02 14:39 | EDM.PDOC ---
ED HPI GENERAL MEDICAL PROBLEM - General Chief Complaint: Upper Extremity Injury/Pain Stated Complaint: JOINT PAIN/SWOLLEN HANDS Time Seen by Provider: 12/02/20 14:10 Source of Information: Reports: Patient, RN Notes Reviewed History Limitations: Reports: No Limitations - History of Present Illness INITIAL COMMENTS - FREE TEXT/NARRATIVE: Patient is a 55-year-old male who presents to the ER for evaluation of a suspected gout flare. Does have a history of gout, and started a few days ago, with pain to his bilateral hands along with swelling. States that he has been using 1000 mg ibuprofen for pain management and things do not seem to be getting much better. States he has no primary care provider, but he normally takes indomethacin 100 mg 2-3 times a day for a few days when the pain is at its worst. He is requesting something for pain management initially, and a refill of indomethacin. Notes that he is also having some pain into his bilateral ankles. Patient denies any other sick-like symptoms, fever/chills, cough/shortness of breath, nausea/vomiting/diarrhea. Treatments BLOCK GREASER: Reports: Other (see below) Other Treatments BLOCK GREASER: out of med a home Left Hand Pain Score (Numeric/FACES): 8 Bilateral Knee Pain Score (Numeric/FACES): 3 Left Ankle Pain Score (Numeric/FACES): 6 - Related Data Allergies Allergy/AdvReac Type Severity Reaction Status Date / Time No Known Allergies Allergy Verified 02/08/20 04:45 Home Meds: Home Meds Colchicine 0.6 mg PO DAILY PRN 08/19/17 [History] Indomethacin [Indocin] 50 mg PO DAILY 08/19/17 [History] Acetaminophen/oxyCODONE [Percocet 325-5 MG] 1 tab PO Q4HR PRN #12 tab 09/12/17 [Rx] Lisinopril 20 mg PO DAILY #30 tablet 09/12/17 [Rx] allopurinoL [Zyloprim] 100 mg PO DAILY #30 tab 09/12/17 [Rx] metFORMIN [Glucophage] 300 mg PO DAILY 02/06/20 [History] metFORMIN [Glucophage] 1 tab PO BIDMEALS #28 tab 02/07/20 [Rx] Indomethacin 100 mg PO TID #42 capsule 12/02/20 [Rx] Past Medical History Cardiovascular History: Reports: Hypertension Genitourinary History: Reports: Other (See Below) Other Genitourinary History: gout Musculoskeletal History: Reports: Gout Endocrine/Metabolic History: Reports: Diabetes, Type II, Obesity/BMI 30+ - Infectious Disease History Infectious Disease History: Reports: Chicken Pox, Novel Coronavirus Social & Family History - Family History Family Medical History: No Pertinent Family History - Tobacco Use Tobacco Use Status *Q: Never Tobacco User - Caffeine Use Caffeine Use: Reports: Coffee - Recreational Drug Use Recreational Drug Use: No - Living Situation & Occupation Living situation: Reports: , with Spouse, with Family (2 kids) 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 ED EXAM, GENERAL - Physical Exam Exam: See Below Exam Limited By: No Limitations General Appearance: Alert, WD/WN, No Apparent Distress Respiratory/Chest: No Respiratory Distress, Lungs Clear, Normal Breath Sounds, No Accessory Muscle Use, Chest Non-Tender Cardiovascular: Normal Peripheral Pulses, Regular Rate, Rhythm, No Edema Peripheral Pulses: 2+: Radial (L), Radial (R), Dorsalis Pedis (L), Dorsalis Pedis (R) Extremities: Normal Capillary Refill, Joint Swelling (bilateral PIP and DIP thumb joints, Bilateral medial ankle joints), Increased Warmth (bilateral PIP and DIP thumb joints, Bilateral medial ankle joints), Redness (bilateral PIP and DIP thumb joints, Bilateral medial ankle joints) Neurological: Alert, Oriented, Normal Cognition, No Motor/Sensory Deficits Psychiatric: Normal Affect, Normal Mood Skin Exam: Warm, Dry, Intact, Normal Color, No Rash Course - Vital Signs Last Recorded V/S: Last Vital Signs Temp 97.1 F 12/02/20 14:12 Pulse 94 12/02/20 14:12 Resp 20 12/02/20 14:12 BP 152/107 H 12/02/20 14:12 Pulse Ox 97 12/02/20 14:12 - Orders/Labs/Meds Meds: Medications Discontinued Medications Generic Name Dose Route Start Last Admin Trade Name Freq PRN Reason Stop Dose Admin Colchicine 0.6 mg 12/02/20 14:13 Colchicine 0.6 Mg Tab PO 12/02/20 14:14 ONETIME ONE Hydromorphone HCl 1 mg 12/02/20 14:31 Hydromorphone 1 Mg/Ml Syringe IM 12/02/20 14:32 ONETIME ONE - Re-Assessments/Exams Free Text/Narrative Re-Assessment/Exam: 12/02/20 14:39 Patient presents to the ER for his gout flare. We will go ahead and refill his indomethacin for outpatient use, will give him 1 dose of Dilaudid while being in the ER. I did explain to him the ER is not a place to have chronic medications filled, verbalized understanding and said he would try to get a primary care provider. Departure - Departure Time of Disposition: 14:39 Disposition: Home, Self-Care 01 Clinical Impression: Gout attack Qualifiers: Gout site: hand Gout etiology: unspecified cause Laterality: unspecified laterality Qualified Code(s): M10.9 - Gout, unspecified - Discharge Information *PRESCRIPTION DRUG MONITORING PROGRAM REVIEWED*: No *COPY OF PRESCRIPTION DRUG MONITORING REPORT IN PATIENT ZULAY: No Prescriptions: Indomethacin 100 mg PO TID #42 capsule Instructions: Gout, [id number] Referrals: PCP,None [Primary Care Provider] - Additional Instructions: You were evaluated in the ER today for your gout attack. You were given a one-time injection of IM pain medication in the ER, and have been provided with a prescription for indomethacin, please take 100 mg 2-3 times a day for the next few days, until the pain has relented. This medication was electronically sent to the [facility] located near [facility]. If you do not have a primary care provider already, I recommend that you follow- up with a provider in our clinic, any family practice provider would be able to provide you with the services. Our clinic telephone number [phone], please call in the morning to obtain an appointment with the provider, for follow-up of your symptoms that prompted your ER visit today. Do not hesitate to return to the ER at any time if symptoms change or worsen. Sepsis Event Note (ED) - Evaluation Sepsis Screening Result: No Definite Risk - Focused Exam Vital Signs: Vital Signs Temp Pulse Resp BP Pulse Ox 12/02/20 14:12 97.1 F 94 20 152/107 H 97
== END 2020-12-02 15:00 | disposition home or self-care (01) ==
LOC: JD.ED 13:24
DX: M10.9 Gout, unspecified (principal); I10 Essential (primary) hypertension; E78.00 Pure hypercholesterolemia, unspecified; E66.9 Obesity, unspecified; Z68.30 Body mass index [BMI] 30.0-30.9, adult; Z79.899 Other long term (current) drug therapy; Z79.84 Long term (current) use of oral hypoglycemic drugs
CPT/HCPCS: 96372; 99283; J1170

== ENCOUNTER 2021-08-23 18:06 | Emergency (ER) | payer MEDICARE ==
[2021-08-23] MEDS ORDERED: Ketorolac 60 MG/2 ML SDV IM ONE (18:32)
== END 2021-08-23 18:48 | disposition home or self-care (01) ==
LOC: JD.ED 18:06
DX: M10.462 Other secondary gout, left knee (principal); I10 Essential (primary) hypertension; E11.9 Type 2 diabetes mellitus without complications; E66.9 Obesity, unspecified; Z68.36 Body mass index [BMI] 36.0-36.9, adult; Z86.16 Personal history of COVID-19; Z79.84 Long term (current) use of oral hypoglycemic drugs
CPT/HCPCS: 96372; 99283; J1885

== ENCOUNTER 2022-05-30 13:44 | Emergency (ER) | payer MEDICARE | END 2022-05-30 14:55 | disposition home or self-care (01) | LOC: JD.ED 13:44 | DX: S90.811A Abrasion, right foot, initial encounter (principal); M10.471 Other secondary gout, right ankle and foot; I10 Essential (primary) hypertension; E11.9 Type 2 diabetes mellitus without complications; M10.9 Gout, unspecified; E66.9 Obesity, unspecified; Z86.16 Personal history of COVID-19; Z79.899 Other long term (current) drug therapy; Z79.84 Long term (current) use of oral hypoglycemic drugs | CPT/HCPCS: 99283 ==

== ENCOUNTER 2022-11-09 17:47 | Emergency (ER) | payer MEDICARE, MEDICAID ==
[2022-11-09] MEDS ORDERED: Ketorolac 60 MG/2 ML SDV IM ONE (18:36)
== END 2022-11-09 18:54 | disposition home or self-care (01) ==
LOC: JD.ED 17:47
DX: M10.011 Idiopathic gout, right shoulder (principal); I10 Essential (primary) hypertension; E66.9 Obesity, unspecified; E11.9 Type 2 diabetes mellitus without complications; Z79.84 Long term (current) use of oral hypoglycemic drugs; Z79.899 Other long term (current) drug therapy
CPT/HCPCS: 96372; 99283; J1885